=== PATIENT | female | born 1980 | race Caucasian/White ===

== ENCOUNTER 2018-09-11 16:56 | Outpatient (CLI) | payer OTHER ==
[~2018-09-11] VITALS: Ht 167.6 cm; Wt 72.5 kg
[2018-09-11 17:41] VITALS: BP 123/71; PULSE 78; Ht 167.6 cm; Wt 72.5 kg
[2018-09-11] MEDS ORDERED: PNV11TAB PO (17:42)
--- NOTE | 2018-09-11 20:31 | PN ---
Triage Information Date/Time Reason for visit: leakage of fluid Weeks of Gestation 36 weeks /Para Diabetes: none Hypertention: none Objective Vital Signs Date Temp Pulse Resp B/P (MAP) Pulse Ox O2 O2 Flow FiO2 Time Delivery Rate 09/11/18 98.2 78 123/71 17:41 (88) Heart Rate: 120's Heart Rate Comments Reactive Results/Medications Results 24 hrs Laboratory Tests Test 09/11/18 17:38 Membranes Rupture NEGATIVE Imaging Results BPP 11/15 Disposition: Discharge Assessment/Plan No sign of SROM Follow up with STEPHANIE Sherman MD Sep 11, 2018 20:31
== END 2018-09-11 20:33 | disposition home or self-care (01) ==
LOC: L-D 16:56 → OBT 16:56 → L-D 17:26 → OBT 20:33
PROVIDERS: ATTEND Obstetrics & Gynecology
DX: O42.913 Preterm premature rupture of membranes, unspecified as to length of time between rupture and onset of labor, third trimester (principal); O09.523 Supervision of elderly multigravida, third trimester; Z3A.36 36 weeks gestation of pregnancy
CPT/HCPCS: 76818; 84112; Z7500; G0463

== ENCOUNTER 2018-09-13 17:47 | Outpatient (CLI) | payer OTHER ==
[~2018-09-13] VITALS: Ht 167.6 cm; Wt 71.7 kg
[~2018-09-13 17:47] MED LIST: PNV11TAB PO
[2018-09-13 18:39] VITALS: BP 120/72; PULSE 83; RESP 19; Ht 167.6 cm; Wt 71.7 kg
--- NOTE | 2018-09-13 20:19 | TRIAGE ---
OB Triage Datetime Report Generated by CPN: 09/13/2018 20:19 Datetime: 09/13/2018 19:43 Time of Arrival: 09/13/2018 17:40 EGA: 36.6 Arrived By: Ambulatory Arrived From: Office Chief Complaint: DECELS NOTED IN THE CLINIC Movement: Present Contractions: Denies/Absent Rupture of Membranes: Denies Vaginal Bleeding: None Vaginal Discharge: Denies Recent Sexual Intercouse: Denies Abdominal Trauma: Not Applicable Patient Complaints: Other Time Provider Notified: 09/13/2018 19:37 Provider Notified: DR CRUZ Initial Plan: NST BPP Datetime: 09/13/2018 19:37 Labor Evaluation Frequency: 0 Monitor Mode: External Pattern: Normal: <= 5 Contractions in 10 Minutes Resting Tone Cochrane: Relaxed Heart Rate FHR Baseline Rate: 135 Monitor Mode: External US Variability: Moderate 6-25 bpm Accelerations: 15X15 Decelerations: None Category: Category I Datetime: 09/13/2018 18:00 Assessment Type: Triage Maternal Assessment Level of Consciousness: Fully Conscious DTR's/Clonus: DTRs 2+; No Clonus Headache: Denies Blurred Vision: No Respiratory Effort: Unlabored; Regular Rhythm; Equal Expansion Breath Sounds, Left: Clear and Equal Breath Sounds, Right: Clear and Equal Nausea/Vomiting: Denies RUQ Epigastric Pain: Denies Lower Extremities Edema: None Degree: None Upper Extremities Edema: None Degree: None Facial Edema: None Fall Risk Assessment History of Falling: (0) No Secondary Diagnosis: (0) No Ambulatory Aid: (0) Bedrest/Nurse Assist IV Therapy: (0) No Gait: (0) Normal/Bedrest/Immobile Mental Status: (0) Oriented to Own Ability Fall Score: 0 Fall Risk Score Definition: No Risk: No action required Datetime: 09/11/2018 20:26 Labor Evaluation Frequency: NONE Monitor Mode: External Resting Tone Cochrane: Relaxed Heart Rate FHR Baseline Rate: 135 Monitor Mode: External US Variability: Moderate 6-25 bpm Accelerations: 15X15 Decelerations: None Category: Category I Datetime: 09/11/2018 20:00 Labor Evaluation Frequency: X1 IN ONE HOUR Monitor Mode: External Duration (sec)2399: 90 Quality: Mild Resting Tone Cochrane: Relaxed Heart Rate FHR Baseline Rate: 135 Monitor Mode: External US Variability: Moderate 6-25 bpm Accelerations: 15X15 Decelerations: None Category: Category I Datetime: 09/11/2018 17:30 Stage of : OB Triage Assessment Type: Triage Maternal Assessment Level of Consciousness: Fully Conscious DTR's/Clonus: DTRs 2+; No Clonus Headache: Denies Blurred Vision: No Respiratory Effort: Unlabored; Regular Rhythm; Equal Expansion Breath Sounds, Left: Clear and Equal Breath Sounds, Right: Clear and Equal Nausea/Vomiting: Denies RUQ Epigastric Pain: Denies Facial Edema: None Temperature Route: Axillary Fall Risk Assessment History of Falling: (0) No Secondary Diagnosis: (0) No Ambulatory Aid: (0) Bedrest/Nurse Assist IV Therapy: (0) No Gait: (0) Normal/Bedrest/Immobile Mental Status: (0) Oriented to Own Ability Fall Score: 0 Fall Risk Score Definition: No Risk: No action required Labor Evaluation Frequency: 0 Monitor Mode: External Pattern: Normal: <= 5 Contractions in 10 Minutes Resting Tone Cochrane: Relaxed Heart Rate FHR Baseline Rate: 130 Monitor Mode: External US Variability: Moderate 6-25 bpm Accelerations: 10X10 Decelerations: None Category: Category I Pain Assessment Pain Scale: 0 Pain Presence: None/Denies Pain Type: N/A Pain Goal: 3 Pain Relief Measures: Comfort Measures Datetime: 09/11/2018 17:28 Time of Arrival: 09/11/2018 16:44 EGA: 36.4 Arrived By: Ambulatory Arrived From: Home Chief Complaint: C/O POSS LEAKING LAST FEW DAYS, BEING SEEN IN NST FOR LOW KRISTY-A, FLUID DROPPED F ROM 15 TO 8 IN A WEEK, RARE UC'S, DENIES BLEEDING Movement: Present Contractions: Denies/Absent Rupture of Membranes: Unsure Vaginal Bleeding: None Vaginal Discharge: Denies Recent Sexual Intercouse: Denies Abdominal Trauma: Not Applicable Patient Complaints: None
--- NOTE | 2018-09-13 20:31 | PN ---
Triage Information Date/Time 09/13/1809/26/2026 Reason for visit: audible deceleration of FHT at cinic Weeks of Gestation 36w6d /Para Diabetes: none Hypertention: none Objective Vital Signs Date Temp Pulse Resp B/P (MAP) Pulse Ox O2 O2 Flow FiO2 Time Delivery Rate 09/13/18 98.2 83 19 120/72 Room Air 18:39 (88) Heart Rate: 130's Heart Rate Comments CAT I tracing Contractions: None Results/Medications Imaging Results BPP 11/15 YOLANDE 93 Disposition: Discharge Assessment/Plan A IUP 36w6d CAT I tracing P discharge home bertrand with MFM tomorrow MARCELINO CASTELLANOS MD Sep 13, 2018 20:31
== END 2018-09-13 20:20 | disposition home or self-care (01) ==
LOC: OBT 17:47 → L-D 17:48 → OBT 20:20
PROVIDERS: ATTEND Obstetrics & Gynecology
DX: O76 Abnormality in fetal heart rate and rhythm complicating labor and delivery (principal); O09.523 Supervision of elderly multigravida, third trimester; Z3A.36 36 weeks gestation of pregnancy
CPT/HCPCS: 76818; Z7500; G0463

== ENCOUNTER 2018-10-03 11:11 | Inpatient (IN) | payer OTHER ==
[~2018-10-03] VITALS: Ht 167.6 cm; Wt 72.9 kg
[2018-10-03 11:38] VITALS: Ht 167.6 cm; Wt 72.9 kg
[2018-10-03 11:39] VITALS: BP 111/60; PULSE 72; RESP 18
--- NOTE | 2018-10-03 12:24 | TRIAGE ---
OB Triage Datetime Report Generated by CPN: 10/03/2018 12:24 Datetime: 10/03/2018 11:43 Vaginal Exam Dilatation (cms): 2.0 Effacement (%): 70 Station: -2 Exam By: liliam Vaginal Bleeding: Scant Cervix, Consistency: Soft Cervix, Position: Midposition Presentation 'A': Cephalic Datetime: 10/03/2018 11:36 Assessment Type: Triage Maternal Assessment Level of Consciousness: DTR's/Clonus: DTRs 2+; No Clonus Headache: Denies Blurred Vision: No Respiratory Effort: Unlabored; Regular Rhythm; Equal Expansion Breath Sounds, Left: Clear and Equal Breath Sounds, Right: Clear and Equal Nausea/Vomiting: Denies RUQ Epigastric Pain: Denies Lower Extremities Edema: None Degree: None Upper Extremities Edema: None Degree: None Facial Edema: None Fall Risk Assessment History of Falling: (0) No Secondary Diagnosis: (0) No Ambulatory Aid: (0) Bedrest/Nurse Assist IV Therapy: (0) No Gait: (0) Normal/Bedrest/Immobile Mental Status: (0) Oriented to Own Ability Fall Score: 0 Fall Risk Score Definition: No Risk: No action required Datetime: 10/03/2018 11:34 Time of Arrival: 10/03/2018 11:06 EGA: 39.5 Arrived By: Ambulatory Arrived From: Home Chief Complaint: PT. HERE C/O UC'S Movement: Present Contractions: Irregular Time Contractions Began: 10/03/2018 04:00 Rupture of Membranes: Denies Vaginal Bleeding: Scant Vaginal Discharge: Present Recent Sexual Intercouse: Denies Abdominal Trauma: Not Applicable Patient Complaints: Contractions; Cramping Time Provider Notified: 10/03/2018 12:19 Provider Notified: ANTHONY Initial Plan: EFM/SVE Datetime: 10/03/2018 11:32 Labor Evaluation Monitor Mode: External Heart Rate Monitor Mode: External US Datetime: 09/13/2018 19:43 EGA: 36.6 Datetime: 09/13/2018 18:00 Fall Score: 0 Fall Risk Score Definition: No Risk: No action required Datetime: 09/11/2018 17:30 Fall Score: 0 Fall Risk Score Definition: No Risk: No action required Datetime: 09/11/2018 17:28 EGA: 36.4
[2018-10-03] MEDS ORDERED: LIDOCAINE 1% (MPF) 30 ML INJ INJ PRN (14:00)
[2018-10-03] MEDS ORDERED: MINERAL OIL LIGHT 10 ML VIAL TOP PRN (14:00)
[2018-10-03] MEDS ORDERED: METHYLERGONOVINE 0.2 MG INJ IM PRN (14:00)
[2018-10-03] MEDS ORDERED: BUTORPHANOL 2 MG INJ IV PRN (14:00)
[2018-10-03] MEDS ORDERED: CARBOPROST 250 MCG INJ IM PRN (14:00)
[2018-10-03] MEDS ORDERED: OXYTOCIN 30 UNITS/LR 500 ML IV PRN (14:00)
[2018-10-03] MEDS ORDERED: OXYTOCIN 30 UNITS/LR 500 ML IV SCH ×2 (14:00)
[2018-10-03] MEDS ORDERED: AMPICILLIN 2 GM/NS (PMX) 100 ML IV ONE (14:00)
[2018-10-03] MEDS ORDERED: IBUPROFEN 600 MG TAB PO PRN (14:00)
[2018-10-03] MEDS: LACTATED RINGER'S 1,000 ML IV SCH ×3 (14:00→18:33)
[2018-10-03] MEDS ORDERED: MISOPROSTOL 200 MCG TAB PR PRN (14:00)
[2018-10-03] MEDS ORDERED: AMPICILLIN 1 GM/NS (PMX) 50 ML IV SCH (16:30)
--- NOTE | 2018-10-03 17:28 | PREAC ---
Date/Time of Note Date/Time of Note DATE: 10/03/18 TIME: 17:27 Anesthesia Eval and Record Evaluation Time Pre-Procedure Interview DATE: 10/03/18 TIME: 17:27 Age 38 Sex female NPO: 8 hrs Preoperative diagnosis Labor Pain Planned procedure Labor Epidural Past Medical History Past Medical History: Includes : : (8), Para: (1), Gestational age: (40) Surgery & Anesthesia Issues No known issue Meds Anticoagulation: No Beta Narinder within 24 hr: No Reason Beta Narinder not given: Pt. not on B-Narinder Reported Medications [id number] ( 19) 1 Each Tablet, 1 TAB PO DAILY, TAB 09/11/18 Current Medications Lactated Ringer's 1,000 ml @ 125 mls/hr Q8H IV Last administered on 10/03/18at 17:05; Admin Dose 125 MLS/HR; Start 10/03/18 at 13:54 Butorphanol Tartrate (Stadol) 2 mg Q2H PRN IV .PAIN SCALE 6-10; Start 10/03/18 at 14:00 Lidocaine (Xylocaine 1% (Mpf)) 30 ml ONCE PRN INJ .EPISIOTOMY; Start 10/03/18 at 14:00 Oxytocin/Lactated Ringer's 500 ml @ 500 mls/hr ONCE POST IV ; Start 10/03/18 at 14:00 Oxytocin/Lactated Ringer's 500 ml @ 125 mls/hr POST IV ; Start 10/03/18 at 14:00 Ibuprofen (Motrin) 600 mg ONCE PRN PO .PAIN 1-5; Start 10/03/18 at 14:00 Oxytocin/Lactated Ringer's 500 ml @ 0 mls/hr ONCE PRN IV .VAGINAL BLEEDING; Start 10/03/18 at 14:00 Methylergonovine Maleate (Methergine) 0.2 mg ONCE PRN IM .VAGINAL BLEEDING; Start 10/03/18 at 14:00 Carboprost Tromethamine (Hemabate) 250 mcg ONCE PRN IM .VAGINAL BLEEDING; Start 10/03/18 at 14:00 Misoprostol (Cytotec) 1,000 mcg ONCE PRN LA .VAGINAL BLEEDING; Start 10/03/18 at 14:00 Mineral Oil (Muri-Lube) 10 ml PRN PRN TOP NOTE; Start 10/03/18 at 14:00 Meds reviewed: Yes Allergies Coded Allergies: No Known Allergy (Unverified , 09/13/18) Allergies Reviewed: Yes Labs/Studies Labs Reviewed: Reviewed by anesthesiologist Result Diagram: 10/03/18 1310 Laboratory Tests 10/03/18 13:10 Blood Bank Test 10/03/18 13:10 Blood Type A POSITIVE Rh Immune Globulin Candidate NO test: Positive Studies: ECG (n/a), CXR (n/a) Pre-procedure Exam Last vitals Vital Signs Date Temp Pulse Resp B/P (MAP) Pulse Ox O2 O2 Flow FiO2 Time Delivery Rate 10/03/18 98.9 72 18 111/60 Room Air 11:39 (77) Airway: Adequate mouth opening, Adequate thyromental dist Mallampati: Mallampati II Teeth: Normal Lung: Normal Heart: Normal ASA Physical Status ASA physical status: 2 Emergency: None Planned Anesthetic Neuraxial: Epidural Planned Pain Management Epidural Pre-operative Attestations Prior to commencing anesthesia and surgery, the patient was re-evaluated, there was verification of: *The patient's identity *The results of appropriate recent lab work and preoperative vital signs *The above evaluation not changing prior to induction *Anesthetic plan, risk benefits, alternative and complications discussed with patient/family; questions answered; patient/family understands, accepts and wishes to proceed. FAUZIA PUTNAM MD Oct 03, 2018 17:28
[2018-10-03] MEDS ORDERED: FENTAnyl 2MCG/ML-ROPIV 0.2% 100 ML ONE (17:30)
[2018-10-03] MEDS ORDERED: NALOXONE (0.4 MG/ML) INJ IV PRN (17:30)
--- NOTE | 2018-10-03 17:55 | HP ---
Date/Time of Note Date/Time of Note DATE: 10/03/18 TIME: 17:47 OB - History Hx of Present Free Text/Dictation 38-year-old female 8 para 1-30 9+ weeks gestation admitted complaining of onset of labor pain at 4 AM Denies rupture of membrane no vaginal bleeding Chief Complaint: Labor contractions Last Menstrual Period: Dec 29, 2017 Estimated Due Date: Oct 05, 2018 : 8 Para: 1 Spontaneous : 6 Care: Good Care Ultrasounds: Normal mid trimester US Obstetrical Complications: Other (Advanced maternal age and previous x1. Low KRISTY-A) Medical Complications: Other (Previous x1) Past Family/Social History * Past Medical, Surgical, Family and Obstetric Histories reviewed from chart. Blood Type: A+ Rubella: immune RPR/VDRL: Negative GBS Status: Negative HBsAG: Negative OB Admission Exam Vital Signs Vital Signs Vital Signs Date Temp Pulse Resp B/P (MAP) Pulse Ox O2 O2 Flow FiO2 Time Delivery Rate 10/03/18 98.9 72 18 111/60 Room Air 11:39 (77) Physical Exam HEENT: WNL Heart: Rhythm Normal Lungs: Clear, Equal Abdomen: WNL Extremities: Normal Reflexes: Normal Cervical Dilatation: 3cm Effacement: 75% Station: -3 Membranes: Intact Heart Rate: 140's Accelerations: Accelerations Present Decelerations: No Decelerations Varibility: Marked Contractions on Admission: 6-10 Minutes Apart Date/Time Contractions Began: October 03, 2018 Frequency of Contractions: Every 6 to 10 minutes Duration: Over 1 minute at Intensity: Moderate Last 72 hours Lab Results CBC & BMP 10/03/18 13:10 OB Assessment/Plan Other Assessment: Term gestation Previous x1 Patient desires vaginal delivery after regardless of the risks in volved and already explained in detail to the patient including possible maternal damage Other plan: Seed with spontaneous labor SADI LAKE MD Oct 03, 2018 17:55
--- NOTE | 2018-10-03 17:57 | PAC ---
Date/Time of Note Date/Time of Note DATE: 10/03/18 TIME: 17:56 Post-Anesthesia Notes Post-Anesthesia Note Last documented vital signs Vital Signs Date Temp Pulse Resp B/P (MAP) Pulse Ox O2 O2 Flow FiO2 Time Delivery Rate 10/03/18 98.9 72 18 111/60 98 Room Air 17:39 (77) Activity: WNL Respiratory function: WNL Cardiovascular function: WNL Mental status: Baseline Pain reasonably controlled: Yes Hydration appropriate: Yes Nausea/Vomiting absent: Yes FAUZIA PUTNAM MD Oct 03, 2018 17:57
[2018-10-04] MEDS: LACTATED RINGER'S 1,000 ML IV SCH ×2 (01:03→08:51)
[2018-10-04] MEDS: FENTAnyl 2MCG/ML-ROPIV 0.2% 100 ML BAG EPI SCH (02:56)
[2018-10-04] MEDS ORDERED: KETOROLAC 30 MG INJ IV STA (09:52)
[2018-10-04] MEDS ORDERED: ACETAMINOPHEN 500 MG TAB PO STA (09:52)
[2018-10-04] MEDS ORDERED: LACTATED RINGER'S 1,000 ML IV* SCH (11:46)
[2018-10-04 12:00] VITALS: BP 120/62; PULSE 75; RESP 18
[2018-10-04] MEDS: IBUPROFEN 600 MG TAB PO SCH ×2 (12:00→17:45)
[2018-10-04] MEDS ORDERED: LANOLIN HPA 1 PKT TOP PRN (12:00)
[2018-10-04] MEDS ORDERED: CARBOPROST 250 MCG INJ IM PRN (12:00)
[2018-10-04] MEDS ORDERED: WITCH HAZEL/GLYCERIN PAD PR PRN (12:00)
[2018-10-04] MEDS ORDERED: MISOPROSTOL 200 MCG TAB PR PRN (12:00)
[2018-10-04] MEDS ORDERED: DIBUCAINE 1% 30 GM OINT TOP PRN (12:00)
[2018-10-04] MEDS ORDERED: OXYTOCIN 30 UNITS/LR 500 ML IV PRN (12:00)
[2018-10-04] MEDS ORDERED: METHYLERGONOVINE 0.2 MG INJ IM PRN (12:00)
[2018-10-04] MEDS ORDERED: ZOLPIDEM 5 MG TAB PO PRN (12:00)
[2018-10-04] MEDS ORDERED: HYDROCODONE/APAP (5/325) TAB PO PRN ×2 (12:00)
[2018-10-04] MEDS: CEPHALEXIN 500 MG CAP PO SCH ×2 (12:44→17:45)
[2018-10-04 13:09] VITALS: BP 116/70; PULSE 77; RESP 18
[2018-10-04] MEDS: BENZOCAINE 20% 56 ML SPRAY TOP PRN (13:57)
--- NOTE | 2018-10-04 14:51 | LDN ---
Date/Time of Note Date/Time of Note DATE: 10/04/18 TIME: 14:50 Delivery Summary Procedure done by Dr. Henry vaginal delivery of a viable infant over intact perineum with Apgars of 9 and 9 Weeks of Gestation 39 weeks and 6 days Placenta Delivered: Spontaneously, Intact & Complete Episiotomy: Yes Perineal laceration: 2 Laceration repair: Second-degree perineal laceration was repaired in layers using 2-0 chromic running stitch Anesthesia type: Epidural Estimated blood loss: 300 Sponge & Needle done & correct: Yes All needle counts correct: Yes Any foreign bodies felt in the: No Infant Delivery Information Sex Sex: female Apgars 1 Minute: 9 5 Minute: 9 Suctioning Nose & mouth suctioned at hill: Yes Delee suction performed: No Umbilical Cord Umbilical cord with: 3 Vessels Cord presentations: no nuchal cord Cord Blood was obtained: Yes Mother & Baby Disposition Disposition Mom & Baby to Maternity; Good: Yes (Mother and baby were recovering in good condition) Mom transferred to: Other (Maternity) Baby to NICU: No SADI LAKE MD Oct 04, 2018 14:51
[2018-10-04 15:52] VITALS: BP 111/58; PULSE 86; RESP 19
[2018-10-04 20:00] VITALS: BP 117/56; PULSE 84; RESP 20
[2018-10-04] MEDS: MAGNESIUM HYDROXIDE 30ML CUP PO SCH (21:23)
[2018-10-04] MEDS: SENNA/DOCUSATE NA (8.6MG/50MG) TAB PO SCH (21:23)
[2018-10-05] VITALS: BP 86/49; PULSE 68; RESP 18
[2018-10-05] MEDS: CEPHALEXIN 500 MG CAP PO SCH ×5 (00:14→23:50)
[2018-10-05] MEDS: IBUPROFEN 600 MG TAB PO SCH ×5 (00:15→23:50)
[2018-10-05 04:00] VITALS: BP 105/56; PULSE 78; RESP 18
[2018-10-05 08:00] VITALS: BP 100/57; PULSE 65; RESP 19
[2018-10-05] MEDS: MAGNESIUM HYDROXIDE 30ML CUP PO SCH ×2 (09:44→21:44)
[2018-10-05] MEDS: SENNA/DOCUSATE NA (8.6MG/50MG) TAB PO SCH ×2 (09:44→21:44)
[2018-10-05 16:00] VITALS: BP 112/72; PULSE 76; RESP 19
--- NOTE | 2018-10-05 16:13 | DS ---
Date/Time of Note Date/Time of Note Home today or next day DATE: 10/05/18 TIME: 16:12 Obstetrical Discharge Record Final Diagnosis Final Diagnosis: Term delivered Other Final Diagnosis Status post vaginal delivery after section Vaginal Delivery Obstetrical Delivery: Spontaneous, Laceration, Repaired, Successful Condition on Discharge Physical Assessment Last Vitals: See nurse's notes Voiding: Yes Bowel Movement: Yes Breast: Soft, non-tender, Filling Fundus: Firm Abdomen and Incision: Abdomen is soft with firm fundus Episiotomy: Perineum is healing well and appears clean Calf Tenderness: No Patient Condition: Good SADI LAKE MD Oct 05, 2018 16:13
--- NOTE | 2018-10-05 16:15 | PD.PPDC ---
EVENTS TRAFFIC CONTROLLER Discharge Instruction Provider Information Physician Information 38-year-old female vaginal delivery after section Diagnosis [id number] Final Diagnosis: Nbzja5s Status post Condition [id number] Patient Condition: Wieih7v Good Diet [id number] Diet: Tziax2p Resume Regular Diet Activity/Restrictions [id number] Activity: [id number] Normal Activity May Shower [id number] Restrictions: Pbgbg8i Nothing in the Vagina [id number] Return to Work or School: [id number] Nov 19, 2018 Follow-up Follow-up with Physician: 2, 4, Week/Weeks (In clinic) Return to clinic for [id number] OB Instructions: Iakfr7z Breast Tenderness Depression Comment: Pelvic rest for 6 weeks SADI LAKE MD Oct 05, 2018 16:15
[2018-10-05] MEDS ORDERED: IBUP-1542 PO (16:16)
[2018-10-05 18:03] VITALS: BP 105/57; PULSE 80; RESP 18
[2018-10-05 20:00] VITALS: BP 120/72; PULSE 79; RESP 18
[2018-10-05] MEDS: BENZOCAINE 20% 56 ML SPRAY TOP PRN (21:44)
[2018-10-06 03:35] VITALS: BP 106/73; PULSE 72; RESP 18
[2018-10-06] MEDS: CEPHALEXIN 500 MG CAP PO SCH ×2 (05:37→12:05)
[2018-10-06] MEDS: IBUPROFEN 600 MG TAB PO SCH ×2 (05:37→12:05)
[2018-10-06 08:30] VITALS: BP 103/55; PULSE 67; RESP 18
[2018-10-06] MEDS: SENNA/DOCUSATE NA (8.6MG/50MG) TAB PO SCH (08:55)
[2018-10-06] MEDS: MAGNESIUM HYDROXIDE 30ML CUP PO SCH (08:55)
[2018-10-06] MEDS ORDERED: VARICELLA VACCINE LIVE/PF 1,350 UNIT/0.5 ML ML SC* ONE (09:00)
[2018-10-06] MEDS ORDERED: MEASLES,MUMPS,RUBELLA VACCINE INJ SC* ONE (09:00)
[2018-10-06] MEDS ORDERED: DIPHTH/TET/ACEL PERTUSS (ADULT) 0.5 ML VIAL IM* ONE (09:00)
--- NOTE | 2018-10-07 14:56 | DELSUM ---
Delivery Summary A-C Datetime Report Generated by CPN: 10/07/2018 14:55 DELIVERY PERSONNEL Grain Distributor: Rhys, Tammi MATERNAL INFORMATION Delivery Anesthesia: Epidural Medications in Delivery: OXYTOCIN 30 MU IN 500 ML OF LR Delivery QBL (ml): 200 Placenta Cultured: No Maternal Complications: None LABOR SUMMARY EDC: 10/05/2018 00:00 No. Babies in Womb: 1 Attempted: Yes Labor Anesthesia: Epidural LABOR INFORMATION Reason for Induction: Not Applicable Onset of Labor: 10/03/2018 04:00 Complete Dilatation: 10/04/2018 08:41 Group B Beta Strep: Negative Steroids Given: None Reason Steroids Not Administered: Not Applicable MEMBRANES Membranes Rupture Method: Spontaneous Rupture of Membranes: 10/04/2018 08:41 Length of Rupture (hr): 0.93 Amniotic Fluid Color: Clear Amniotic Fluid Amount: Small Amniotic Fluid Odor: None STAGES OF LABOR Stage 1 hr: 28 Stage 1 min: 41 Stage 2 hr: 0 Stage 2 min: 56 Stage 3 hr: 0 Stage 3 min: 5 Total Time in Labor hr: 29 Total Time in Labor min: 42 VAGINAL DELIVERY Episiotomy: None Laceration Extension: Second Degree Laceration Type: Perineal Laceration Repair: Yes Initial Vag Sponge Count: 10 Final Vag Sponge Count: 10 Initial Vag Sharps Count: 2 Final Vag Sharps Count: 2 Sponge Count Correct: Yes; Vaginal Sweep Performed Sharps Count Correct: Yes BABY A INFORMATION Infant Delivery Date/Time: 10/04/2018 09:37 Method of Delivery: Vaginal Born in Route : No : Successful Forceps: N/A Vacuum Extraction: N/A Shoulder Dystocia : N/A SHOULDER DYSTOCIA BABY A Delivery Date/Time: 10/04/2018 09:37 PRESENTATION/POSITION BABY A Presentation: Cephalic Cephalic Presentation: Vertex Vertex Position: Left Occipital Anterior Breech Presentation: N/A PLACENTA INFORMATION BABY A Placenta Delivery Time : 10/04/2018 09:42 Placenta Method of Delivery: Spontaneous Placenta Status: Delivered SCORES BABY A Heart Rate 1 min: >100 bpm Resp Effort 1 min: Good Cry Reflex Irritability 1 min: Cough/Sneeze/Pulls Away Muscle Tone 1 min: Active Motion Color 1 min: Body [place], Extremit Blue Resuscitation Effort 1 min: Tactile Stimulation SCORE 1 MIN: 9 Heart Rate 5 min: >100 bpm Resp Effort 5 min: Good Cry Reflex Irritability 5 min: Cough/Sneeze/Pulls Away Muscle Tone 5 min: Active Motion Color 5 min: Body [place], Extremit Blue SCORE 5 MIN: 9 INFANT INFORMATION BABY A Gestational Age at Delivery: 39.5 Gestational Status: Full Term- 39- 40.6 Weeks Infant Outcome : Liveborn, with signs of life Condition : Stable Infant Sex: Female IDENTIFICATION/MEDS BABY A ID Band Number: [id number] ID Band Location: Right Leg; Left Arm Sensor Applied: Yes Sensor Number: [id number] Sensor Location : Cord Clamp Vitamin K Given : Not Given Erythromycin Given: Not Given WEIGHT/LENGTH BABY A Infant Birthweight (gm): 2910 Weight (lb): 6 Weight (oz): 7 Infant Length (in): 19.50 Length (cm): 49.53 CORD INFORMATION BABY A No. Cord Vessels: 3 Nuchal Cord : N/A Cord Blood Taken: Yes Suction: Mouth; Nose ASSESSMENT BABY A Infant Complications: None Physical Findings at Delivery: Within Normal Limits Respirations: Appears Normal Motor Operator/ALS Called : No Care By: Chino SALVADOR Transferred To: Remains with Mother
== END 2018-10-06 14:55 | disposition home or self-care (01) | DRG 807 ==
LOC: OBT 11:11 → L-D 11:11 → OBT 12:16 → L-D 12:51 → PP1 10-04 11:45
PROVIDERS: ADMIT Obstetrics & Gynecology; ATTEND Obstetrics & Gynecology
PROC: 10E0XZZ Delivery of Products of Conception, External Approach (ICD-10-PCS; principal; 2018-10-04)
PROC: 0KQM0ZZ Repair Perineum Muscle, Open Approach (ICD-10-PCS; 2018-10-04)
DX: O34.211 Maternal care for low transverse scar from previous cesarean delivery (principal); Z37.0 Single live birth; Z3A.39 39 weeks gestation of pregnancy; O70.1 Second degree perineal laceration during delivery
CPT/HCPCS: 62322; 85025; 85610; 85730; 86592; 86885; 86900; 86901; 90716; G0463; J1885; J2590; J3010; J7120